=== PATIENT | female | born 1950 | race Caucasian/White ===

== ENCOUNTER → 2017-09-07 | Outpatient (CLI) | payer MEDICARE, BC ==
[~2017-09-07] MED LIST: ASPIRIN81 M1; ATORVASTATIN CA10 MG PO; ATORVASTATIN CA20 MG PO; CALCIUM PO; CRESTOR5 MG PO; CYMBALTA PO; FISH OIL PO; FUROSEMIDE PO; HUMALOG; HUMALOG100 UNIT/3 SQ; LEVEMIR100 UNIT/1 SQ; LIPITOR; LOSARTAN PO; METFORMIN PO; OSTEO BI-FLEX1 EAC2 PO; POTASSIUM PO; VITAMIN B12 PO; VITAMIN D3 PO
--- NOTE | 2017-09-07 15:24 | Diagnostic Imaging Report ---
PROCEDURE:US RETROPERITONEAL ( KIDNEY ). COMPARISON:Patients [facility], US, US RETROPERITONEAL ( KIDNEY )., 11/11/2016, 9:32. INDICATIONS:CKD STAGE 3 TECHNIQUE: Kimbrough-scale and color sonographic images of the bilateral kidneys and bladder where obtained in transverse and longitudinal planes. FINDINGS: RIGHT KIDNEY: 10.6 cm, cortex 1.7 cm Cysts: None Solid masses: None Stones: None Hydronephrosis: None Echogenicity: Normal LEFT KIDNEY: 10.4 cm, cortex 1.6 cm Cysts: None Solid masses: None Stones: None Hydronephrosis: None Echogenicity: Normal Bladder: No focal lesions. Bilateral ureteral jets are identified. CONCLUSION: 1. Normal bilateral renal size and echogenicity. No hydronephrosis, stones, or solid lesions. Maxwell Gonzalez M.D. Dictated by: Maxwell Gonzalez M.D. on 09/07/2017 at 15:26 Electronically approved by: Maxwell Gonzalez M.D. on 09/07/2017 at 15:26
--- NOTE | 2017-09-07 15:27 | Diagnostic Imaging Report ---
PROCEDURE:US PELVIC (NON OB) DOUGLAS OR F/U COMPARISON:None. INDICATIONS:CKD STAGE 3 TECHNIQUE: Grayscale transverse and sagittal transabdominal images were obtained of the pelvis. FINDINGS: Bladder is unremarkable, without focal lesions. Bilateral ureteral jets are identified. Prevoid bladder volume 353 mL Post void bladder volume 0 mL Unremarkable adnexa, without focal lesions CONCLUSION: 1. Unremarkable bladder. 2. No significant postvoid residual. Maxwell Gonzalez M.D. Dictated by: Maxwell Gonzalez M.D. on 09/07/2017 at 15:30 Electronically approved by: Maxwell Gonzalez M.D. on 09/07/2017 at 15:30
== END ==
LOC: US 13:37
PROVIDERS: ATTEND Internal Medicine Nephrology
DX: N18.3 Chronic kidney disease, stage 3 (moderate) (principal)
CPT/HCPCS: 76770; 76857

== ENCOUNTER → 2018-08-31 | Outpatient (CLI) | payer MEDICARE, BC ==
--- NOTE | 2018-08-31 20:01 | Diagnostic Imaging Report ---
MRI SPINE LUMBAR WO HISTORY: Low back pain COMPARISON: None. TECHNIQUE: Sagittal T1, sagittal T2, sagittal STIR, axial T2, coronal T2, and axial proton density weighted images of the lumbar spine were obtained without contrast. DISCUSSION: Number of non-rib bearing lumbar vertebral bodies: 5. Alignment: Normal lordosis. No scoliosis. Vertebrae: No fractures, infection or neoplasm. Conus medullaris: Normal, ends at L1-L2. Cauda equina: No masses or arachnoiditis. Posterior paraspinal muscles: There is mild left paraspinal muscle atrophy at the lumbosacral junction.. Mild bilateral paraspinal muscle edema is also seen at the lumbosacral junction. Soft tissues: Posterior incision signal changes are present. Partially visualized small nodular T2 hyperintense cutaneous lesion in the midline back at T12 may be an inclusion cyst. Mild to moderate multilevel disc degeneration is present. There is a posterior annular fissure at L5-S1. T12-L1: Disc bulge without significant canal or foraminal stenosis. L1-L2: Disc bulge without significant canal or foraminal stenosis. L2-L3: Mild to moderate canal stenosis due to disc bulge and ligamentum flavum thickening. No significant foraminal stenosis. L3-L4: Left laminectomy/foraminotomy changes without significant central canal or left foraminal stenosis. Moderate right foraminal stenosis due to disc bulge and facet arthrosis. L4-L5: Minimal grade 1 anterolisthesis of L4 on L5 due to facet arthrosis. Apparent laminectomy changes without significant central canal stenosis. Moderate right and mild left foraminal stenoses due to uncovered disc bulge and facet arthrosis. L5-S1: Apparent laminectomy changes without significant central canal stenosis. Mild right foraminal stenosis due to disc bulge and facet arthrosis. No significant left foraminal stenosis. IMPRESSION: 1. Left L3-L4 laminectomy/foraminotomy changes. Apparent L4-L5 and L5-S1 laminectomy changes. 2. Underlying mild to moderate multilevel disc degeneration with posterior annular fissure at L5-S1. 3. Grade 1 anterolisthesis of L4 on L5 due to facet arthrosis. 4. Mild to moderate degenerative canal stenosis at L2-L3. 5. Multilevel degenerative foraminal stenoses - moderate on the right at L3-L4 and L4-L5. Signed by: Dr. Ant Virgen M.D. on 08/31/2018 7:57 PM
== END ==
LOC: MRI 09:20
DX: M54.40 Lumbago with sciatica, unspecified side (principal)
CPT/HCPCS: 72148

== ENCOUNTER 2018-10-05 11:46 | Outpatient (RCR) | payer MEDICARE, BC ==
[~2018-10-05 11:46] MED LIST changes: +COLLAGENASE OINTMENT 30 GM TUBE ONE; +LIDOCAINE/PRILOCAINE 2.5-2.5% KIT ONE
== END 2018-10-07 ==
LOC: WCC 11:46
PROVIDERS: ATTEND Internal Medicine Infectious Disease
DX: E11.22 Type 2 diabetes mellitus with diabetic chronic kidney disease (principal); E08.22 Diabetes mellitus due to underlying condition with diabetic chronic kidney disease; S31.103A Unspecified open wound of abdominal wall, right lower quadrant without penetration into peritoneal cavity, initial encounter; N18.2 Chronic kidney disease, stage 2 (mild); I10 Essential (primary) hypertension; G99.0 Autonomic neuropathy in diseases classified elsewhere; D50.8 Other iron deficiency anemias; E78.01 Familial hypercholesterolemia; M13.80 Other specified arthritis, unspecified site; X16.XXXA Contact with hot heating appliances, radiators and pipes, initial encounter

== ENCOUNTER → 2019-09-24 | Day surgery (SDC) | payer MEDICARE, BC, OTHER ==
--- NOTE | 2019-09-20 14:46 | Diagnostic Imaging Report ---
EXAMINATION: CHEST 2 VIEWS INDICATION: Pre-operative COMPARISON: None FINDINGS: LINES/TUBES:None LUNGS:The lungs are well-inflated. No focal consolidation or pulmonary edema. PLEURA:No pleural effusion or pneumothorax. MEDIASTINUM:The cardiomediastinal silhouette appears normal in size and shape. BONES/SOFT TISSUES:No acute osseous injury. ABDOMEN:No free air under the diaphragm. IMPRESSION: No focal pneumonia or pulmonary edema. Signed by: Alex Plaza MD on 09/20/2019 2:42 PM
[2019-09-20 15:09] LABS: BASOPHILS % 0.5 % (0.0-1.0); EOSINOPHILS # (AUTO) 0.1 (0.0-0.4); HEMOGLOBIN 11.2 g/dL (12.0-16.0); LYMPHOCYTES # (AUTO) 2.1 (1.0-3.2); LYMPHOCYTES % 35.6 % (18.0-39.1); MEAN CORPUSCULAR HEMOGLOBIN 30.2 pg (28-32); MEAN CORPUSCULAR HGB CONC 32.9 g/dL (31-35); MEAN CORPUSCULAR VOLUME 91.6 fL (81-99); MONOCYTES # (AUTO) 0.4 (0.2-0.8); MONOCYTES % 6.2 % (4.4-11.3); NEUTROPHILS # (AUTO) 3.3 (2.1-6.9); NEUTROPHILS % 55.2 % (38.7-80.0); PLATELET COUNT 170 x10e3/uL (140-360); RED BLOOD COUNT 3.71 x10e6/uL (3.6-5.1); RED CELL DISTRIBUTION WIDTH 14.1 % (11.7-14.4)
[2019-09-20 15:20] LABS: INR 0.88; PROTHROMBIN TIME 12.4 seconds (11.9-14.5)
[2019-09-20 15:21] LABS: PARTIAL THROMBOPLASTIN TIME 29.2 seconds (23.8-35.5)
[2019-09-20 15:25] LABS: ANION GAP 16.4 mmol/L (8-16); CALCIUM 10.6 mg/dL (8.4-10.2); CREATININE, SERUM 2.23 mg/dL (0.57-1.11); POTASSIUM 4.4 mmol/L (3.5-5.1)
[~2019-09-24] MED LIST changes: +BUPIVACAINE HCL 0.5% INJ 30 ML VIAL INJ ONE; +CEFAZOLIN SOD 1 GM/NS 50ML 50 ML IV ONE; -COLLAGENASE OINTMENT 30 GM TUBE ONE; +DEXAMETHASONE SOD PHOS INJ 4 MG/ML VIAL ONE; +FENTANYL CITRATE/PF 100MCG/2 ML INJ ONE; +FUROSEMIDE40 MG PO; +HUMALOG100 UNIT/1 SC; +LANTUS 3ML100 UNITS/ SC; +LIDOCAINE HCL 2% LOCAL INJ 5 ML SDV VIAL INJ ONE; -LIDOCAINE/PRILOCAINE 2.5-2.5% KIT ONE; +MIDAZOLAM HCL 2 MG/2 ML VIAL ONE; +MUPIROCIN 2% OINT 22 GM TUBE ONE; +ONDANSETRON HCL INJ 2MG/ML 2ML 2 MG/ML VIAL ONE; +ORENCIA125 MG/1 M IV; +POTASSIUM CHLO10 ME1 PO; +PROCRIT10000 UNIT INJ; +PROPOFOL IV EMULSION 10 MG/ML 20 ML VIAL ONE; +SEVOFLURANE INHAL SOLN 250 ML PEN BTL ONE; +VITAMIN D250 MCG PO; +ZYRTEC10 M3 PO
[2019-09-24 08:30] VITALS: BP 118/65
--- NOTE | 2019-09-24 13:09 | Operative Report ---
DATE OF PROCEDURE: 09/24/2019 SURGEON: Asa Salguero MD PREOPERATIVE DIAGNOSIS: Stenosing tenosynovitis of left long finger. POSTOPERATIVE DIAGNOSIS: Stenosing tenosynovitis of left long finger. OPERATION PERFORMED: Tenovaginotomy of left long finger. ANESTHESIA: General. HISTORY: The patient is a 69-year-old female, who presents with stenosing tenosynovitis of the left long finger that is recalcitrant to conservative treatment. The risks, benefits, and alternatives of treatment were discussed with the patient and they are prepared to undergo the procedure as outlined. DESCRIPTION OF PROCEDURE: The patient was brought to the operating theater. After the induction of adequate general/regional anesthesia, the patient was prepped and draped in a supine position. A time out was performed by the entire operating room team. An oblique incision was marked out over the A1 carlos a of the left long finger. The upper extremity was exsanguinated, and a tourniquet was inflated to a pressure of 250 mmHg. The incision was made through the skin and subcutaneous tissues. All venous tributaries were controlled with bipolar cautery. The incision was deepened through the palmar tissues. The neurovascular bundles on the radial and ulnar sides of the flexor tendon sheath were identified and retracted away from the flexor tendon sheath and preserved. The A1 carlos a of the affected finger was identified and incised longitudinally, taking care to protect and preserve the flexor tendons within the sheath. After the complete length of the carlos a had been transected, the tendons were placed in a range of motion. There was noted to be good motion without any locking. The wound was then copiously irrigated with bacteriostatic saline and closed with 5-0 nylon in an interrupted horizontal mattress fashion. A Marcaine field block was performed at the operative site. The tourniquet was deflated. All the fingers pinked up nicely. A sterile bulky conforming bandage was applied to the hand, and the patient was returned to the recovery room in satisfactory condition and was discharged with a postoperative instruction sheet as well as a followup appointment. Asa Salguero MD ER/MODL /[id number]
== END | disposition home or self-care (01) ==
LOC: OR 05:30
PROVIDERS: ATTEND Plastic Surgery
DX: M65.332 Trigger finger, left middle finger (principal); E11.22 Type 2 diabetes mellitus with diabetic chronic kidney disease; I12.9 Hypertensive chronic kidney disease with stage 1 through stage 4 chronic kidney disease, or unspecified chronic kidney disease; N18.3 Chronic kidney disease, stage 3 (moderate); R06.02 Shortness of breath; Z01.810 Encounter for preprocedural cardiovascular examination; Z01.812 Encounter for preprocedural laboratory examination; Z01.818 Encounter for other preprocedural examination; Z11.59 Encounter for screening for other viral diseases; Z79.4 Long term (current) use of insulin; Z79.82 Long term (current) use of aspirin
CPT/HCPCS: 26055; 36415 ×2; 71046; 80048; 82948; 85025; 85610; 85730; 87635; 93005; J0690; J1100; J2001; J2250; J2405; J2704; J3010